=== PATIENT | female | born 1955 | race Caucasian/White ===

== ENCOUNTER 2024-08-31 07:35 | Day surgery (SDC) | payer MEDICARE, OTHER ==
[2024-08-31 08:09] LABS: HEMATOCRIT 40.8 % (34.3-46.0); HEMOGLOBIN 12.8 g/dL (11.2-15.5); MEAN CORPUSCULAR HEMOGLOBIN 27.1 pg (31.6-35.5); MEAN CORPUSCULAR HGB CONC 31.4 g/dL (31.6-35.5); MEAN CORPUSCULAR VOLUME 86.3 fL (81.4-99.0); RED BLOOD CELL COUNT 4.73 M/uL (3.77-5.24); WHITE BLOOD CELL COUNT,WBC 5.6 K/uL (3.2-11.0)
[2024-08-31 08:30] LABS: ALANINE AMINOTRANSFERASE,ALT 67 U/L (12-78); ALBUMIN 3.7 g/dL (3.4-5.0); ALKALINE PHOSPHATASE 66 U/L (46-116); ANION GAP 8.4 mmol/L (5.0-14.0); ASPARTATE AMNIOTRANSFERASE,AST 48 U/L (15-37); BILIRUBIN TOTAL 0.5 mg/dL (0.2-1.0); BLOOD UREA NITROGEN,BUN 14 mg/dL (7-18); CALCIUM 9.3 mg/dL (8.5-10.1); CARBON DIOXIDE,CO2 30 mmol/L (21-32); CHLORIDE,CL 106 mmol/L (100-108); ESTIMATED GFR 62 mL/min (>60); GLUCOSE RANDOM 93 mg/dL (74-106); POTASSIUM,K 3.8 mmol/L (3.6-5.2); PROTEIN TOTAL,TP 7.4 g/dL (6.4-8.2); SODIUM,NA 144 mmol/L (140-148)
[2024-08-31] MEDS: Nozin Nasal Sanitizer NASBOTH ONE (08:39)
[2024-08-31] MEDS: Lactated Ringers 1,000 ML IV SCH (08:40)
[2024-08-31] MEDS ORDERED: Midazolam 1 MG/ML 2 ML SDV ONE (09:00)
[2024-08-31] MEDS ORDERED: Propofol 200 MG/20 ML SDV ONE ×2 (09:00→10:00)
[2024-08-31] MEDS ORDERED: fentaNYL 100 MCG/2 ML SDV ONE (09:00)
[2024-08-31] MEDS ORDERED: Lidocaine 0.5% 50 ML SDV ONE (09:35)
[2024-08-31] MEDS: ceFAZolin 2 GM in Premix Bag 1 BAG IV ONE (09:42)
[2024-08-31] MEDS: Bupivacaine 0.5% 30 ML SDV ONE (10:10)
[2024-08-31] MEDS: Acetaminophen/HYDROcodone 325-5 MG Tab PO ONE (11:51)
== END 2024-08-31 12:10 | disposition home or self-care (01) ==
LOC: JP.SDS 07:35
PROVIDERS: ATTEND Specialist
DX: M18.11 Unilateral primary osteoarthritis of first carpometacarpal joint, right hand (principal); K21.9 Gastro-esophageal reflux disease without esophagitis; I25.10 Atherosclerotic heart disease of native coronary artery without angina pectoris; Z91.011 Allergy to milk products; Z88.2 Allergy status to sulfonamides; Z88.5 Allergy status to narcotic agent
CPT/HCPCS: 01830; 25447; 36415; 80053; 85027; 93005; 93010; A9270; C1762; J0665; J0690; J2250; J2704; J3010; J7120

== ENCOUNTER 2025-02-09 14:52 | Emergency (ER) | payer MEDICARE, MEDICAID | END 2025-02-09 16:40 | disposition home or self-care (01) | LOC: JP.ED 14:52 | DX: S80.02XA Contusion of left knee, initial encounter (principal); E78.00 Pure hypercholesterolemia, unspecified; Z88.5 Allergy status to narcotic agent; Z88.8 Allergy status to other drugs, medicaments and biological substances; Z88.2 Allergy status to sulfonamides; Z79.899 Other long term (current) drug therapy; Z90.49 Acquired absence of other specified parts of digestive tract; X58.XXXA Exposure to other specified factors, initial encounter | CPT/HCPCS: 73562-26-LT; 73562-LT; 99283; 99284 ==